=== PATIENT | male | born 1955 | race Hispanic/Latino ===

== ENCOUNTER 2017-01-17 13:35 | Observation (INO) | payer BC ==
[2017-01-17 13:36] VITALS: BMI 33.9
[2017-01-17 14:45] LABS: BASO # 0.1 K/uL (0.0-0.2); BASO % 0.5 % (0.0-2.0); EOS # 0.3 K/uL (0.0-0.7); EOS % 1.7 % (0.0-4.0); HEMATOCRIT 42.7 % (35.0-51.0); LYMPH # 0.6 K/uL (1.0-4.3); LYMPH % 4.1 % (20.0-40.0); MEAN CELL VOLUME 88.7 fL (80.0-94.0); MEAN CORPUSCULAR HGB CONC 33.8 g/dL (33.0-37.0); MEAN PLATELET VOLUME 8.6 fL (7.2-11.7); MONO # 0.9 K/uL (0.0-0.8); MONO % 5.7 % (0.0-10.0); PLATELET COUNT 203 K/uL (130-400); RED CELL DISTRIBUTION WIDTH 14.6 % (11.5-14.5)
[2017-01-17] MEDS ORDERED: Barium Sulfate Susp 0.1% w/v, 0.1% w/w 450 mL Bottle PO ONE ×3 (14:46→16:30)
[2017-01-17 14:47] LABS: WHITE BLOOD COUNT 15.3 K/uL (4.8-10.8)
[2017-01-17 14:54] LABS: INR 1.2
[2017-01-17 14:58] LABS: CHLORIDE 99 mmol/L (98-107); SODIUM 140 mmol/L (132-148)
[2017-01-17 14:59] LABS: POTASSIUM 4.2 mmol/L (3.6-5.2)
--- NOTE | 2017-01-17 14:59 | RAD ---
HISTORY: chest pain COMPARISON: None available. TECHNIQUE: Chest, one view. FINDINGS: Examination limited by habitus. LUNGS: Mild pulmonary venous congestion. Subtle right basilar atelectasis or infiltrate. Please note that chest x-ray has limited sensitivity for the detection of pulmonary masses. PLEURA: No significant pleural effusion identified. No definite pneumothorax . CARDIOVASCULAR: Heart size appears top normal. OSSEOUS STRUCTURES: Acromioclavicular arthropathy. VISUALIZED UPPER ABDOMEN: Unremarkable. OTHER FINDINGS: None. IMPRESSION: Mild pulmonary venous congestion. Subtle right basilar atelectasis or infiltrate.
[2017-01-17 15:01] LABS: ALB/GLOB RATIO 1.5 (1.0-2.1); ALKALINE PHOSPHATASE 58 U/L (38-126); ALT/SGPT 29 U/L (21-72); AST/SGOT 21 U/L (17-59); BILIRUBIN,TOTAL 0.3 mg/dL (0.2-1.3); BLOOD UREA NITROGEN 22 mg/dL (9-20); CALCIUM 8.9 mg/dl (8.6-10.4); CARBON DIOXIDE 28 mmol/L (22-30); GFR AFRICAN-AMERICAN > 60; GLUCOSE,RANDOM 118 mg/dL (75-110)
[2017-01-17 15:03] LABS: NEUTROPHIL 91 % (50-75); TOTAL CELLS COUNTED 100
[2017-01-17] MEDS ORDERED: Morphine 4 MG/ML VIAL ONE ×2 (15:59→18:54)
[2017-01-17] MEDS ORDERED: Sodium Chloride 0.9% 500 ML IV ONE ×2 (16:10→16:23)
[2017-01-17] MEDS ORDERED: Iodixanol 320 MG/ML 100 ML BOTTLE IV ONE (16:13)
--- NOTE | 2017-01-17 16:54 | C.PDOC ---
History Of Present Illness 61 year old male with a history of Lupus, DVT, and antiphospholipid syndrome, presents to the ED with complaints of epigastric pain radiating to his chest and down to his lower abdomen since this morning. Patient states his abdomen feels distended and he also has some associated SOB. He states he is compliant with his Xarelt, and denies chest pain, vomiting, diarrhea, fever, dysuria/ hematuria. Time Seen by Provider: 01/17/17 14:19 Chief Complaint (Nursing): Abdominal Pain History Per: Patient History/Exam Limitations: no limitations Onset/Duration Of Symptoms: Hrs Current Symptoms Are (Timing): Still Present Severity: Moderate Location Of Pain/Discomfort: Epigastric Radiation Of Pain To:: Chest Quality Of Discomfort: "Pain" Associated Symptoms: denies: Fever, Vomiting, Diarrhea Exacerbating Factors: None Alleviating Factors: None Past Medical History Reviewed: Historical Data, Nursing Documentation, Vital Signs Vital Signs: Last Vital Signs Temp 98.5 F 01/19/17 08:00 Pulse 78 01/19/17 08:00 Resp 20 01/19/17 08:00 BP 131/76 01/19/17 08:00 Pulse Ox 97 01/19/17 08:00 - Medical History PMH: Fractures, HTN - [facility] Procedures ANGIOPLASTY OF OTHER NON-CORONARY VESSEL(S) (01/06/15) CONTRAST AORTOGRAM (01/06/15) CONTRAST ARTERIOGRAM-LEG (01/06/15) ENDOSC POLYPECTOMY OF LG INTEST (03/04/15) INSEJ [id number] PERIPHERAL NON-CORONARY VES STENT(S) (01/06/15) INSERTION OF TWO VASCULAR STENTS (01/06/15) PROCEDURE ON TWO VESSELS (01/06/15) Family History: States: No Known Family Hx - Social History Hx Tobacco Use: Yes Hx Alcohol Use: Yes Hx Substance Use: No - Immunization History Hx Tetanus Toxoid Vaccination: No Hx Influenza Vaccination: Yes Hx Pneumococcal Vaccination: No Review Of Systems Except As Marked, All Systems Reviewed And Found Negative. Constitutional: Negative for: Fever, Chills Cardiovascular: Negative for: Chest Pain, Palpitations Respiratory: Positive for: Shortness of Breath Gastrointestinal: Positive for: Abdominal Pain, Other (+Distention). Negative for: Nausea, Vomiting, Diarrhea Genitourinary: Negative for: Dysuria, Hematuria Physical Exam - Physical Exam Appears: Non-toxic, Other (+Uncomfotable + Moderate discomfort) Skin: Normal Color, Warm, Dry, No Rash Head: Normacephalic Eye(s): bilateral: Normal Inspection Oral Mucosa: Moist Chest: Symmetrical Cardiovascular: Rhythm Regular Respiratory: Normal Breath Sounds, No Accessory Muscle Use, No Rales, No Rhonchi , No Wheezing, Other (Speaking in complete sentences) Gastrointestinal/Abdominal: Soft, Tenderness (+diffuse TTP greatest at epigastric area ), No Distention, No Guarding, No Rebound Back: Normal Inspection, No CVA Tenderness Extremity: Normal ROM, No Pedal Edema, No Calf Tenderness Neurological/Psych: Oriented x3 ED Course And Treatment - Laboratory Results Result Diagrams: 01/19/17 07:45 01/19/17 07:45 ECG: Interpreted By Me, Viewed By Me ECG Rhythm: Sinus Rhythm ECG Interpretation: No Acute Changes Interpretation Of ECG: +Left axis deviation. No acute ST/T wave changes. Rate From EC (bpm) O2 Sat by Pulse Oximetry: 96 (Room air) Pulse Ox Interpretation: Normal - Radiology CXR: Interpreted by Me, Viewed By Me (NO INFILTRATES, (+) MILD PULM VASCULAR CONGESTION) - CT Scan/US CTA Chest Other Rad Studies (CT/US): Read By Radiologist, Radiology Report Reviewed CT/US Interpretation: FINDINGS: PULMONARY ARTERIES: No large, central pulmonary emboli. Assessment beyond the lobar branches is limited by patient related motion induced artifact and suboptimal bolus injection of contrast. AORTA: No acute findings. No thoracic aortic aneurysm. LUNGS: Unremarkable. No nodule, mass or pulmonary consolidation. PLEURAL SPACES: Unremarkable. No effusion or pneuomothorax. HEART: Cardiomegaly. No evidence of acute, significant cardiovascular disease. LYMPH NODES: No lymphadenopathy. BONES, CHEST WALL: Unremarkable. No fracture or destructive lesion. OTHER FINDINGS: Unremarkable. IMPRESSION: No large, central pulmonary emboli. Nondiagnostic study beyond the lobar level. This relates to poor contrast opacification and patient related motion induced artifact. If there is a high index of suspicion for acute pulmonary embolism either repeat study or ventilation-perfusion scan advised. CTA ABD & Pelvis w/contrast Other Rad Studies (CT/US): Read By Radiologist, Radiology Report Reviewed CT/US Interpretation: FINDINGS: LOWER THORAX: Unremarkable. LIVER: Unremarkable. No gross lesion or ductal dilatation. GALLBLADDER AND BILE DUCTS : Unremarkable. PANCREAS: Unremarkable. No gross lesion or ductal dilatation. SPLEEN: Unremarkable. ADRENALS: Unremarkable. No mass. KIDNEYS AND URETERS: Unremarkable. No hydronephrosis. No solid mass. VASCULATURE: Bilateral aorta iliac stents are seen. There is enhancement within the lumen of the stents. The SMA and celiac arteries are patent. BOWEL: Unremarkable. No obstruction. No gross mural thickening. No evidence of pneumatosis to suggest mesenteric ischemia. APPENDIX: Normal appendix. PERITONEUM: Unremarkable. No free fluid. No free air. LYMPH NODES: Unremarkable. No enlarged lymph nodes. BLADDER: Unremarkable. REPRODUCTIVE: Unremarkable. BONES: No acute fracture. OTHER FINDINGS: None. IMPRESSION: No evidence of mesenteric occlusion Progress Note: Blood work, EKG, CXR, CTA Abdomen & Pelvis w/contrast, CTA Chest ordered and reviewed. Patient's h/o blood clots/antiphospholipid syndrome concerning for PE/mesenteric ischemia. Patient treated given IV NS bolus, IV morphine. Reevaluation Time: 18:15 Reassessment Condition: Unchanged (Patient states he is still having significant pain, IV morphine and IV Cipro & Flagyl ordered.) - Physician Consult Information Physician Contacted: Nikolay Joseph Outcome Of Conversation: Spoke with Dr. Nikolay Joseph, he agrees with admission to hospitalist service, will be under Dr. Khalil since he is the night hospitalist. Disposition - Disposition Disposition: HOSPITALIZED Disposition Time: 18:36 Condition: STABLE - Clinical Impression Clinical Impression: Acute diverticulitis, Abdominal pain - Scribe Statement The provider has reviewed the documentation as recorded by the Scribe Tracy Domingo. Provider Attestation: All medical record entries made by the Argentinaibneno were at my direction and personally dictated by me. I have reviewed the chart and agree that the record accurately reflects my personal performance of the history, physical exam, medical decision making, and the department course for this patient. I have also personally directed, reviewed, and agree with the discharge instructions and disposition. Decision To Admit - Pt Status Changed To: Hospital Disposition Of: Inpatient - Admit Certification Admit to Inpatient:: After my assessment, the patient will require hospitalization for at least two midnights. This is because of the severity of symptoms shown, intensity of services needed, and/or the medical risk in this patient being treated as an outpatient. - InPatient: Physician Admission Certification:: see notes - . Bed Request Type: Regular Admitting Physician: Alan Khalil Patient Diagnosis: Acute diverticulitis
[2017-01-17] MEDS ORDERED: Iodixanol 320 mg/ml 150 ml Bottle IV ONE (16:57)
--- NOTE | 2017-01-17 17:34 | CT ---
PROCEDURE: CT Chest with contrast (Pulmonary Angiogram) HISTORY: CP, SOB H/O DVT R/O PE COMPARISON: None available. TECHNIQUE: Axial computed tomography images were obtained of the chest in the pulmonary arterial phase of enhancement. Coronal and sagittal reformatted images were created and reviewed. Intravenous contrast dose: 75 cc Visipaque 320. Mean Hounsfield unit values in the main pulmonary artery: 188.24 Radiation dose: Total exam DLP = 512.18. MGy-cm. This CT exam was performed using one or more of the following dose reduction techniques: Automated exposure control, adjustment of the mA and/or kV according to patient size, and/or use of iterative reconstruction technique. FINDINGS: PULMONARY ARTERIES: No large, central pulmonary emboli. Assessment beyond the lobar branches is limited by patient related motion induced artifact and suboptimal bolus injection of contrast. AORTA: No acute findings. No thoracic aortic aneurysm. LUNGS: Unremarkable. No nodule, mass or pulmonary consolidation. PLEURAL SPACES: Unremarkable. No effusion or pneuomothorax. HEART: Cardiomegaly. No evidence of acute, significant cardiovascular disease. LYMPH NODES: No lymphadenopathy. BONES, CHEST WALL: Unremarkable. No fracture or destructive lesion OTHER FINDINGS: Unremarkable. IMPRESSION: No large, central pulmonary emboli. Nondiagnostic study beyond the lobar level. This relates to poor contrast opacification and patient related motion induced artifact. If there is a high index of suspicion for acute pulmonary embolism either repeat study or ventilation-perfusion scan advised.
--- NOTE | 2017-01-17 17:43 | CT ---
PROCEDURE: CT Abdomen and Pelvis with contrast HISTORY: H/O DVT, ABD PAIN, SOB, R/O MESENERIC ISCHEMIA COMPARISON: None. TECHNIQUE: Contrast dose: 100 cc of Visipaque Radiation dose: Total exam DLP = 996 mGy-cm. This CT exam was performed using one or more of the following dose reduction techniques: Automated exposure control, adjustment of the mA and/or kV according to patient size, and/or use of iterative reconstruction technique. FINDINGS: LOWER THORAX: Unremarkable. LIVER: Unremarkable. No gross lesion or ductal dilatation. GALLBLADDER AND BILE DUCTS: Unremarkable. PANCREAS: Unremarkable. No gross lesion or ductal dilatation. SPLEEN: Unremarkable. ADRENALS: Unremarkable. No mass. KIDNEYS AND URETERS: Unremarkable. No hydronephrosis. No solid mass. VASCULATURE: Bilateral aorta iliac stents are seen. There is enhancement within the lumen of the stents. The SMA and celiac arteries are patent. BOWEL: Unremarkable. No obstruction. No gross mural thickening. No evidence of pneumatosis to suggest mesenteric ischemia. APPENDIX: Normal appendix. PERITONEUM: Unremarkable. No free fluid. No free air. LYMPH NODES: Unremarkable. No enlarged lymph nodes. BLADDER: Unremarkable. REPRODUCTIVE: Unremarkable. BONES: No acute fracture. OTHER FINDINGS: None. IMPRESSION: No evidence of mesenteric occlusion
[2017-01-17] MEDS ORDERED: Ciprofloxacin 400mg/200ml D5W 200 ML IV STA (18:20)
[2017-01-17] MEDS ORDERED: metroNIDAZOLE IV 500 mg/100 ml 100 ML IV SCH (18:30)
[2017-01-17] MEDS ORDERED: metroNIDAZOLE IV 500 mg/100 ml 100 ML IV STA (18:45)
[2017-01-17] MEDS ORDERED: metroNIDAZOLE IV 500 mg/100 ml 100 ML ONE (18:53)
[2017-01-17] MEDS ORDERED: Ciprofloxacin 400mg/200ml D5W 200 ML IVPB ONE (19:29)
--- NOTE | 2017-01-17 20:16 | CP.PCM.HP ---
<Lars HILLIARDIvy - Last Filed: 01/17/17 21:55> History of Present Illness - History of Present Illness History of Present Illness: Patient is a 61 year old male with past medical history of left leg DVT, PVD, and CVA who presents with complaint of epigastric abdominal pain. Patient states that the pain started after he ate his lunch around 11:15AM. Patient states that he started to get shooting pain in his chest up to his neck and down into his stomach. He said he went outside to get some fresh air at the time the pain started but that he felt very uncomfortable and felt that his stomach was becoming distended. Patient states he had similar pain 12 years ago and had gone to an ER because he thought the pain was cardiac-related. Patient states at that time he ended up just having severe gas pains. Patient states that he was feeling constipated on Saturday evening but had "smooth move" tea that contains senna to help have a bowel movement. Patient states that he did have a bowel movement the next morning but it had a white foam on it. Patient states that he always checks his urine for blood as well as his stool for blood or melena because he is on xarelto for his DVT. Patient denies fever or chills, chest pain or diaphoresis. Patient states the pain is a burning sensation and when it gets stronger it makes him short of breath. Patient complains of abdominal distention that has slightly improved. He also states he is passing gas. Patient denies nausea and vomiting, diarrhea, dysuria, leg or back pain. Patient states he is drinking a lot of water and is also urinating many times per day. Patient states he walks several miles per day and does not get short of breath, he also denies orthopnea. 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, PVD, states he has tested positive for lupus antibodies in the past but had rheumatology work up that was negative Meds:xarelto 15mg daily (pt unsure of dose), altace 10mg BID (takes only once daily), [id number] BID (takes only once), ASA 81mg, lipitor 20mg, plavix 75mg PSHx: arterial stents in legs, colonoscopy that showed diverticulum FamHx: father with diabetes, CVA, heart disease, alcoholism Social Hx: 1pppd smoker for 50 years; drinks one shot sambuca at night with espresso; lives with in [place]; 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 absent: Chest Pain, Diaphoresis - Respiratory Respiratory: Dyspnea. absent: Cough - Gastrointestinal Gastrointestinal: Abdominal Pain, Bloating, Constipation. absent: Diarrhea, Nausea, Vomiting - Genitourinary Genitourinary: absent: Difficulty Urinating, Dysuria - Musculoskeletal Musculoskeletal: absent: Back Pain - Integumentary Integumentary: absent: New Lesions, Rash - Neurological Neurological: absent: Dizziness, Focal Weakness - Psychiatric Psychiatric: Anxiety Past Patient History - Infectious Disease Hx of Infectious Diseases: None - Past Medical History & Family History Past Medical History?: Yes - Past Social History Smoking Status: Heavy Smoker > 10 Cigarettes Daily - CARDIAC Hx Hypertension: Yes - PULMONARY Hx Respiratory Disorders: No - NEUROLOGICAL Hx Neurological Disorder: Yes HX Cerebrovascular Accident: Yes (2006) - HEENT Hx HEENT Problems: No - RENAL Hx Chronic Kidney Disease: No - ENDOCRINE/METABOLIC Hx Endocrine Disorders: No Other/Comment: strong family h/o diabetes - HEMATOLOGICAL/ONCOLOGICAL Hx Blood Disorders: No Hx Blood Transfusions: No Hx Blood Transfusion Reaction: No - INTEGUMENTARY Hx Dermatological Problems: No - MUSCULOSKELETAL/RHEUMATOLOGICAL Hx Fractures: Yes - GASTROINTESTINAL Hx Gastrointestinal Disorders: No - GENITOURINARY/GYNECOLOGICAL Hx Genitourinary Disorders: No - PSYCHIATRIC Hx Substance Use: No - SURGICAL HISTORY Hx Surgeries: Yes Hx Orthopedic Surgery: Yes (left knee) Hx Vascular Surgery: Yes - ANESTHESIA Hx Anesthesia: Yes Hx Anesthesia Reactions: No Hx Malignant Hyperthermia: No Meds Allergies/Adverse Reactions: Allergies Allergy/AdvReac Type Severity Reaction Status Date / Time No Known Allergies Allergy Verified 01/17/17 13:59 Physical Exam - Constitutional Appears: Non-toxic, Other (uncomfortable) - Head Exam Head Exam: ATRAUMATIC, NORMOCEPHALIC - Eye Exam Eye Exam: EOMI, Normal appearance - ENT Exam ENT Exam: Mucous Membranes Dry - Respiratory Exam Respiratory Exam: Wheezes, NORMAL BREATHING PATTERN - Cardiovascular Exam Cardiovascular Exam: +S1, +S2 - GI/Abdominal Exam GI & Abdominal Exam: Distended, Normal Bowel Sounds, Tenderness (left upper and left lower quadrant tenderness). absent: Firm, Guarding, Rebound Additional comments: small umbilical hernia - Extremities Exam Extremities exam: Negative for: calf tenderness Additional comments: left lower extremity with 1+ pitting edema bilateral calves nontender to palpation negative Shen's sign - Neurological Exam Neurological exam: Alert, Oriented x3 - Psychiatric Exam Psychiatric exam: Anxious - Skin Skin Exam: Dry, Normal Color, Warm Results - Vital Signs Recent Vital Signs: Last Vital Signs Temp 100.0 F H 01/17/17 18:36 Pulse 86 01/17/17 18:36 Resp 24 01/17/17 18:36 BP 113/74 01/17/17 18:36 Pulse Ox 96 01/17/17 18:38 - Labs Result Diagrams: 01/17/17 14:41 01/17/17 14:41 Assessment & Plan - Assessment and Plan (Free Text) Assessment: Abdominal Pain CT angio of abdomen and pelvis done to rule out mesenteric ischemia due to history of DVT CT shows no mesenteric occlusion, there are bilateral aorta iliac stents, SMA/ celiacs patent mild acute focal diverticulitis in sigmoid; no abscess or perforation. Fluid filled nonspecific small bowel loops without a clear transition measuring up to 2.9cm. this may be within physiologic limits however presence of gastroenteritis or partial obstruction not completely excluded (please see full report) Will keep patient NPO for now zofran 4mg Q6hprn pepcid 20mg IV q12h NS @ 100cc/h flagyl q8h, cipro 200mg q12h Dyspnea CT angio chest ordered to rule out pulmonary embolus given history of DVT CT negative for large central pulmonary embolus History of DVT will continue xarelto- home dose needs to be verified by pharmacy HTN patient takes ramipril at home patient currently normotensive will add medications as necessary Diabetes holding metformin due to recent IV contrast ISS with accuchecks ACHS PVD continue plavix and aspirin Hyperlipidemia continue lipitor 20mg equivalent Prophylactic measure SCDs contraindicated due to PVD patient is on xarelto for anticoagulation pepcid 20mg q12h Patient seen and examined with attending physician. Plan of care as per attending physician Dr. Khalil. <Alan Khalil P - Last Filed: 01/20/17 20:29> Results - Vital Signs Recent Vital Signs: Last Vital Signs Temp 98.5 F 01/19/17 08:00 Pulse 78 01/19/17 08:00 Resp 20 01/19/17 08:00 BP 131/76 01/19/17 08:00 Pulse Ox 97 01/19/17 08:00 - Labs Result Diagrams: 01/19/17 07:45 01/19/17 07:45 Attending/Attestation - Attestation I have personally seen and examined this patient.: Yes I have fully participated in the care of the patient.: Yes I have reviewed all pertinent clinical information: Yes
[2017-01-17 21:50] VITALS: RESP 20
[2017-01-17] MEDS: (Novolin R) Insulin Human Regular 100 units/ml vial SC SCH (23:01)
[2017-01-17] MEDS: Sodium Chloride 0.9% 1,000 ML IV SCH (23:01)
[2017-01-18] MEDS: metroNIDAZOLE IV 500 mg/100 ml 250 MG in Premixed IV 1 EA IVPB SCH ×3 (03:05→18:07)
[2017-01-18 07:30] LABS: BASO # 0.1 K/uL (0.0-0.2); BASO % 0.8 % (0.0-2.0); EOS # 0.2 K/uL (0.0-0.7); EOS % 2.3 % (0.0-4.0); LYMPH # 0.6 K/uL (1.0-4.3); LYMPH % 5.8 % (20.0-40.0); MEAN CELL VOLUME 88.1 fL (80.0-94.0); MEAN CORPUSCULAR HEMOGLOBIN 29.4 pg (27.0-31.0); MEAN CORPUSCULAR HGB CONC 33.3 g/dL (33.0-37.0); MEAN PLATELET VOLUME 9.2 fL (7.2-11.7); MONO # 0.7 K/uL (0.0-0.8); MONO % 6.6 % (0.0-10.0); PLATELET COUNT 172 K/uL (130-400); RED CELL DISTRIBUTION WIDTH 14.4 % (11.5-14.5)
[2017-01-18 07:39] LABS: CHLORIDE 98 mmol/L (98-107)
[2017-01-18 07:41] LABS: ALB/GLOB RATIO 1.3 (1.0-2.1); BILIRUBIN,TOTAL 0.9 mg/dL (0.2-1.3); CARBON DIOXIDE 26 mmol/L (22-30); GFR AFRICAN-AMERICAN > 60
[2017-01-18 07:42] LABS: BLOOD UREA NITROGEN 19 mg/dL (9-20); GLUCOSE,RANDOM 124 mg/dL (75-110)
[2017-01-18 08:24] LABS: SODIUM 133 mmol/L (132-148)
[2017-01-18 08:26] LABS: ALKALINE PHOSPHATASE 53 U/L (38-126); AST/SGOT 18 U/L (17-59); TOTAL PROTEIN 6.1 g/dL (6.3-8.3)
[2017-01-18] MEDS: (Novolin R) Insulin Human Regular 100 units/ml vial SC SCH ×3 (08:26→21:46)
[2017-01-18 08:27] LABS: ALT/SGPT 29 U/L (21-72)
[2017-01-18] MEDS: Sodium Chloride 0.9% 1,000 ML IV SCH (08:54)
[2017-01-18 09:55] LABS: EOSINOPHIL 1 % (0-4); NEUTROPHIL 79 % (50-75); REACTIVE LYMPHOCYTES 1 % (0-0); TOTAL CELLS COUNTED 100
[2017-01-18] MEDS: Ciprofloxacin 200mg/100ml D5W 100 ML IVPB SCH ×2 (10:13→21:45)
--- NOTE | 2017-01-18 12:04 | CARD ---
APPROVED REPORT EKG Measurement Heart [id number] <Conclusion> Normal sinus rhythm Left axis deviation Abnormal ECG
--- NOTE | 2017-01-18 17:10 | CP.PCM.PN ---
<Clifford Harrison - Last Filed: 01/18/17 17:18> Subjective - Date & Time of Evaluation Date of Evaluation: 01/18/17 Time of Evaluation: 10:00 - Subjective Subjective: PGY-1 Medicine Progress Note for Dr. Sanchez Patient seen and examined at bedside. No acute event overnight. Patient resting in bed comfortbly. Patient abdominal pain has improved. Patient had BM this morning and it was solid with normal color and caliber. Patient does not want insulin stating he is not Diabetic. Patient has no other complaint. denied fever /chills, cp, sob, palpitations, hematochezia, hemetemesis, n/v/d, incontinence, and constipation. Objective - Vital Signs/Intake and Output Vital Signs (last 24 hours): Temp Pulse Resp BP Pulse Ox 98.2 F 74 20 108/71 96 01/18/17 16:00 01/18/17 16:00 01/18/17 16:00 01/18/17 16:00 01/18/17 16:00 Intake and Output: 01/18/17 01/18/17 06:59 18:59 Intake Total 800 Balance 800 - Medications Medications: Current Medications Aspirin (Ecotrin) 81 mg PO DAILY [facility] Last Admin: 01/18/17 10:14 Dose: 81 mg Clopidogrel Bisulfate (Plavix) 75 mg PO DAILY [facility] Last Admin: 01/18/17 10:14 Dose: 75 mg Cyanocobalamin (Vitamin B12 100 Mcg Tab) 100 mcg PO DAILY [facility] Last Admin: 01/18/17 11:00 Dose: Not Given Docusate Sodium (Colace) 100 mg PO TID [facility] Last Admin: 01/18/17 14:57 Dose: 100 mg Famotidine (Pepcid) 20 mg IVP Q12H [facility] Last Admin: 01/18/17 14:57 Dose: 20 mg Folic Acid (Folic Acid) 1 mg PO DAILY [facility] Last Admin: 01/18/17 10:14 Dose: 1 mg Sodium Chloride (Sodium Chloride 0.9%) 1,000 mls @ 100 mls/hr IV .Q10H [facility] Last Admin: 01/18/17 08:54 Dose: Not Given Metronidazole 250 mg/ (Miscellaneous) 50 mls @ 100 mls/hr IVPB Q8H [facility] Last Admin: 01/18/17 12:00 Dose: 100 mls/hr Ciprofloxacin (Cipro 200mg/100ml D5w) 100 mls @ 67 mls/hr IVPB Q12H [facility] Last Admin: 01/18/17 10:13 Dose: 67 mls/hr Morphine Sulfate (Morphine) 2 mg IVP Q4 PRN PRN Reason: Pain, moderate (4-7) Last Admin: 01/18/17 16:20 Dose: 2 mg Ondansetron HCl (Zofran Inj) 4 mg IVP Q6H PRN PRN Reason: Nausea/Vomiting Rivaroxaban (Xarelto) 20 mg PO DAILY [facility] Last Admin: 01/18/17 10:14 Dose: 20 mg Rosuvastatin Calcium (Crestor) 10 mg PO HS [facility] - Labs Labs: 01/18/17 07:13 01/18/17 07:13 PT 13.9 SECONDS (9.7-12.2) H 01/17/17 14:41 INR 1.2 01/17/17 14:41 APTT 77 SECONDS (21-34) H 01/17/17 14:41 - Constitutional Appears: No Acute Distress - Head Exam Head Exam: ATRAUMATIC, NORMOCEPHALIC - Eye Exam Eye Exam: EOMI, Normal appearance Pupil Exam: PERRL - ENT Exam ENT Exam: Mucous Membranes Moist - Neck Exam Neck Exam: Normal Inspection - Respiratory Exam Respiratory Exam: Clear to Ausculation Bilateral, NORMAL BREATHING PATTERN - GI/Abdominal Exam GI & Abdominal Exam: Soft, Tenderness (mild to deep palpation), Normal Bowel Sounds. absent: Distended, Firm, Guarding, Rebound - Extremities Exam Extremities Exam: Normal Capillary Refill. absent: Calf Tenderness - Back Exam Back Exam: absent: CVA tenderness (L), CVA tenderness (R) - Neurological Exam Neurological Exam: Alert, Awake, CN II-XII Intact, Normal Gait, Oriented x3 - Psychiatric Exam Psychiatric exam: Normal Affect, Normal Mood - Skin Skin Exam: Dry, Intact, Normal Color, Warm Assessment and Plan - Assessment and Plan (Free Text) Plan: Abdominal Pain likely secondary to diverticulitis CT angio of abdomen and pelvis done to rule out mesenteric ischemia due to history of DVT CT shows no mesenteric occlusion, there are bilateral aorta iliac stents, SMA/ celiacs patent mild acute focal diverticulitis in sigmoid; no abscess or perforation. Fluid filled nonspecific small bowel loops without a clear transition measuring up to 2.9cm. this may be within physiologic limits however presence of gastroenteritis or partial obstruction not completely excluded (please see full report) zofran 4mg Q6h prn Protonix 40 mg IVP q12h NS @ 100cc/h flagyl q8h, cipro 200mg q12h CLD - ADAT Dyspnea CT angio chest ordered to rule out pulmonary embolus given history of DVT CT negative for large central pulmonary embolus History of DVT Xarelto 20 mg PO daily HTN patient takes ramipril at home patient currently normotensive will add medications as necessary Diabetes holding metformin due to recent IV contrast ISS with accuchecks ACHS - patient is refusing PVD continue plavix and aspirin Hyperlipidemia Crestor 10 mg PO HS Prophylactic measure SCDs contraindicated due to PVD patient is on xarelto for anticoagulation Protonix 40 mg IVP q12h <Manuelito Sanchez - Last Filed: 01/19/17 12:48> Objective - Vital Signs/Intake and Output Vital Signs (last 24 hours): Temp Pulse Resp BP Pulse Ox 98.5 F 78 20 131/76 97 01/19/17 08:00 01/19/17 08:00 01/19/17 08:00 01/19/17 08:00 01/19/17 08:00 Intake and Output: 01/19/17 01/19/17 06:59 18:59 Intake Total 1800 Output Total 300 Balance 1500 - Labs Labs: 01/19/17 07:45 01/19/17 07:45 PT 13.9 SECONDS (9.7-12.2) H 01/17/17 14:41 INR 1.2 01/17/17 14:41 APTT 77 SECONDS (21-34) H 01/17/17 14:41 Attending/Attestation - Attestation I have personally seen and examined this patient.: Yes I have fully participated in the care of the patient.: Yes I have reviewed all pertinent clinical information, including history, physical exam and plan: Yes Notes (Text): 01/19/17 12:47 patient was seen and examined at bedside with the resident Abdominal pain is improving We will continue IV antibiotics for acute diverticulitis Discussed the plan of care with the resident and agree with the above history and physical and assessment/plan with the resident
[2017-01-19 01:48] VITALS: PULSE 78
[2017-01-19] MEDS: metroNIDAZOLE IV 500 mg/100 ml 250 MG in Premixed IV 1 EA IVPB SCH ×2 (02:45→11:00)
[2017-01-19] MEDS: Sodium Chloride 0.9% 1,000 ML IV SCH (04:40)
[2017-01-19 08:00] LABS: BASO # 0.1 K/uL (0.0-0.2); EOS # 0.4 K/uL (0.0-0.7); EOS % 6.1 % (0.0-4.0); HEMATOCRIT 37.7 % (35.0-51.0); LYMPH # 0.6 K/uL (1.0-4.3); LYMPH % 9.2 % (20.0-40.0); MEAN CELL VOLUME 88.6 fL (80.0-94.0); MEAN CORPUSCULAR HEMOGLOBIN 29.3 pg (27.0-31.0); MEAN CORPUSCULAR HGB CONC 33.1 g/dL (33.0-37.0); MEAN PLATELET VOLUME 9.3 fL (7.2-11.7); MONO # 0.5 K/uL (0.0-0.8); PLATELET COUNT 191 K/uL (130-400); RED CELL DISTRIBUTION WIDTH 14.5 % (11.5-14.5); WHITE BLOOD COUNT 6.7 K/uL (4.8-10.8)
[2017-01-19] MEDS: (Novolin R) Insulin Human Regular 100 units/ml vial SC SCH ×2 (08:00→12:01)
[2017-01-19 08:17] LABS: CHLORIDE 104 mmol/L (98-107)
[2017-01-19 08:18] LABS: POTASSIUM 4.1 mmol/L (3.6-5.2); SODIUM 139 mmol/L (132-148)
[2017-01-19 08:19] LABS: GFR AFRICAN-AMERICAN > 60
[2017-01-19 08:20] LABS: ALB/GLOB RATIO 1.3 (1.0-2.1); ALKALINE PHOSPHATASE 50 U/L (38-126); ALT/SGPT 28 U/L (21-72); AST/SGOT 18 U/L (17-59); BILIRUBIN,TOTAL 0.5 mg/dL (0.2-1.3); BLOOD UREA NITROGEN 14 mg/dL (9-20); CARBON DIOXIDE 26 mmol/L (22-30); GLUCOSE,RANDOM 113 mg/dL (75-110)
[2017-01-19 08:27] VITALS: BP 131/76; TEMP 98.5
[2017-01-19] MEDS: Ciprofloxacin 200mg/100ml D5W 100 ML IVPB SCH (08:31)
[2017-01-19 09:32] LABS: EOSINOPHIL 7 % (0-4); NEUTROPHIL 79 % (50-75); TOTAL CELLS COUNTED 100
--- NOTE | 2017-01-19 11:22 | CP.PCM.DIS ---
<Tarun Soto H - Last Filed: 01/19/17 14:28> Provider - Provider Date of Admission: 01/17/17 18:36 Attending physician: Obie Raya MD Primary care physician: Dr. Bocanegra Consults: Dr. Del Rosario cardiology Time Spent in preparation of Discharge (in minutes): 40 Hospital Course - Lab Results Lab Results: Most Recent Lab Values WBC 6.7 K/uL (4.8-10.8) 01/19/17 07:45 RBC 4.26 Mil/uL (4.40-5.90) L 01/19/17 07:45 Hgb 12.5 g/dL (12.0-18.0) 01/19/17 07:45 Hct 37.7 % (35.0-51.0) 01/19/17 07:45 MCV 88.6 fL (80.0-94.0) 01/19/17 07:45 MCH 29.3 pg (27.0-31.0) 01/19/17 07:45 MCHC 33.1 g/dL (33.0-37.0) 01/19/17 07:45 RDW 14.5 % (11.5-14.5) 01/19/17 07:45 Plt Count 191 K/uL (130-400) 01/19/17 07:45 MPV 9.3 fL (7.2-11.7) 01/19/17 07:45 Neut % (Auto) 75.7 % (50.0-75.0) H 01/19/17 07:45 Lymph % (Auto) 9.2 % (20.0-40.0) L 01/19/17 07:45 [place] % (Auto) 8.0 % (0.0-10.0) 01/19/17 07:45 Eos % (Auto) 6.1 % (0.0-4.0) H 01/19/17 07:45 Baso % (Auto) 1.0 % (0.0-2.0) 01/19/17 07:45 Neut # 5.0 K/uL (1.8-7.0) 01/19/17 07:45 Lymph # 0.6 K/uL (1.0-4.3) L 01/19/17 07:45 [place] # 0.5 K/uL (0.0-0.8) 01/19/17 07:45 Eos # 0.4 K/uL (0.0-0.7) 01/19/17 07:45 Baso # 0.1 K/uL (0.0-0.2) 01/19/17 07:45 Neutrophils % (Manual) 79 % (50-75) H 01/19/17 07:45 Band Neutrophils % 1 % (0-2) 01/19/17 07:45 Lymphocytes % (Manual) 7 % (20-40) L 01/19/17 07:45 Reactive Lymphs % 1 % (0-0) H 01/18/17 07:13 Monocytes % (Manual) 6 % (0-10) 01/19/17 07:45 Eosinophils % (Manual) 7 % (0-4) H 01/19/17 07:45 Platelet Estimate Normal (NORMAL) 01/19/17 07:45 RBC Morphology Normal 01/18/17 07:13 PT 13.9 SECONDS (9.7-12.2) H 01/17/17 14:41 INR 1.2 01/17/17 14:41 APTT 77 SECONDS (21-34) H 01/17/17 14:41 Sodium 139 mmol/L (132-148) 01/19/17 07:45 Potassium 4.1 mmol/L (3.6-5.2) 01/19/17 07:45 Chloride 104 mmol/L (98-107) 01/19/17 07:45 Carbon Dioxide 26 mmol/L (22-30) 01/19/17 07:45 Anion Gap 13 (10-20) 01/19/17 07:45 BUN 14 mg/dL (9-20) 01/19/17 07:45 Creatinine 1.0 MG/DL (0.8-1.5) 01/19/17 07:45 Est GFR ( Amer) > 60 01/19/17 07:45 Est GFR (Non-Af Amer) > 60 01/19/17 07:45 POC Glucose (mg/dL) 104 mg/dL (65-110) 01/18/17 21:40 Random Glucose 113 mg/dL (75-110) H 01/19/17 07:45 Lactic Acid 0.8 mmol/L (0.7-2.1) 01/19/17 10:56 Calcium 8.0 mg/dl (8.6-10.4) L 01/19/17 07:45 Total Bilirubin 0.5 mg/dL (0.2-1.3) 01/19/17 07:45 AST 18 U/L (17-59) 01/19/17 07:45 ALT 28 U/L (21-72) 01/19/17 07:45 Alkaline Phosphatase 50 U/L (38-126) 01/19/17 07:45 Total Creatine Kinase 55 U/L (55-170) 01/18/17 07:13 CK-MB (Mass) 1.44 ng/mL (0.0-3.38) 01/18/17 07:13 Troponin I < 0.0120 ng/mL (0.00-0.120) 01/17/17 14:41 Troponin I, Quant < 0.0120 ng/mL (0.00-0.120) 01/18/17 07:13 NT-Pro-B Natriuret Pep 96.6 pg/mL (0-900) 01/17/17 16:56 Total Protein 6.0 g/dL (6.3-8.3) L 01/19/17 07:45 Albumin 3.5 g/dL (3.5-5.0) 01/19/17 07:45 Globulin 2.6 gm/dL (2.2-3.9) 01/19/17 07:45 Albumin/Globulin Ratio 1.3 (1.0-2.1) 01/19/17 07:45 Lipase 94 U/L (23-300) 01/17/17 21:26 - Hospital Course Hospital Course: Hospital course: Patient was admitted for chest pain, anxiety, shortness of breath. He was worked with CT of the chest negative for central PE, negative cardiac enzymes x3. He was also given IV antibiotics for suspected diveriticlis and ischemic bowel. CT angio of the abdomen showed no evidence of mesentric ischemia or inflammation. He saw Dr. Del Rosario cardiology for outpatient referral. D/C plan and instruction Patient to be discharged home per Dr. Raya. Patient will need to see his primary care physician and a supervisor tank cleaning after discharge for post hospital care and for primary care as well. Patient will return to ED if symptoms return. Patient can see Dr. Del Rosario for cardiology or he can be referred by his PMD. Diagnosis Chest Pain -PE ruled out, DE ruled out h/o Peripheral vascular disease Anxiety NIDDM Discharge Exam - Head Exam Head Exam: ATRAUMATIC, NORMOCEPHALIC Discharge Plan - Follow Up Plan Condition: STABLE Disposition: HOME/ ROUTINE Instructions: How to Stop Smoking (DC), Diverticulitis (DC), Heart Healthy Diet (DC), Deep Venous Thrombosis (DC), Peripheral Vascular Disease (DC), Chronic Hypertension (DC), Dyspnea (GEN), Hyperlipidemia (DC), Prediabetes (DC) Additional Instructions: Patient to be discharged home per Dr. Raya. Patient will need to see his primary care physician and a supervisor tank cleaning after discharge for post hospital care and for primary care as well. Patient will return to ED if symptoms return. Patient can see Dr. Del Rosario for cardiology or he can be referred by his PMD. Referrals: Aubrey Del Rosario MD [Staff Provider] - Clinical Quality Measures - CQM - Stroke Antithrombotic Prescribed: Yes Anticoagulation Prescribed for Atrial Flutter, Atrial Fibrillation and History of:: Yes - CQM - VTE Did patient receive overlap therapy during hosptialization?: No Is patient being discharged on overlap therapy?: No Medical Reason for discharge Overlap Therapy: No <Obie Raya - Last Filed: 02/20/17 15:14> Provider - Provider Date of Admission: 01/17/17 16:55 Attending physician: Obie Raya MD Hospital Course - Lab Results Lab Results: Most Recent Lab Values WBC 6.7 K/uL (4.8-10.8) 01/19/17 07:45 RBC 4.26 Mil/uL (4.40-5.90) L 01/19/17 07:45 Hgb 12.5 g/dL (12.0-18.0) 01/19/17 07:45 Hct 37.7 % (35.0-51.0) 01/19/17 07:45 MCV 88.6 fL (80.0-94.0) 01/19/17 07:45 MCH 29.3 pg (27.0-31.0) 01/19/17 07:45 MCHC 33.1 g/dL (33.0-37.0) 01/19/17 07:45 RDW 14.5 % (11.5-14.5) 01/19/17 07:45 Plt Count 191 K/uL (130-400) 01/19/17 07:45 MPV 9.3 fL (7.2-11.7) 01/19/17 07:45 Neut % (Auto) 75.7 % (50.0-75.0) H 01/19/17 07:45 Lymph % (Auto) 9.2 % (20.0-40.0) L 01/19/17 07:45 [place] % (Auto) 8.0 % (0.0-10.0) 01/19/17 07:45 Eos % (Auto) 6.1 % (0.0-4.0) H 01/19/17 07:45 Baso % (Auto) 1.0 % (0.0-2.0) 01/19/17 07:45 Neut # 5.0 K/uL (1.8-7.0) 01/19/17 07:45 Lymph # 0.6 K/uL (1.0-4.3) L 01/19/17 07:45 [place] # 0.5 K/uL (0.0-0.8) 01/19/17 07:45 Eos # 0.4 K/uL (0.0-0.7) 01/19/17 07:45 Baso # 0.1 K/uL (0.0-0.2) 01/19/17 07:45 Neutrophils % (Manual) 79 % (50-75) H 01/19/17 07:45 Band Neutrophils % 1 % (0-2) 01/19/17 07:45 Lymphocytes % (Manual) 7 % (20-40) L 01/19/17 07:45 Reactive Lymphs % 1 % (0-0) H 01/18/17 07:13 Monocytes % (Manual) 6 % (0-10) 01/19/17 07:45 Eosinophils % (Manual) 7 % (0-4) H 01/19/17 07:45 Platelet Estimate Normal (NORMAL) 01/19/17 07:45 RBC Morphology Normal 01/18/17 07:13 PT 13.9 SECONDS (9.7-12.2) H 01/17/17 14:41 INR 1.2 01/17/17 14:41 APTT 77 SECONDS (21-34) H 01/17/17 14:41 Sodium 139 mmol/L (132-148) 01/19/17 07:45 Potassium 4.1 mmol/L (3.6-5.2) 01/19/17 07:45 Chloride 104 mmol/L (98-107) 01/19/17 07:45 Carbon Dioxide 26 mmol/L (22-30) 01/19/17 07:45 Anion Gap 13 (10-20) 01/19/17 07:45 BUN 14 mg/dL (9-20) 01/19/17 07:45 Creatinine 1.0 MG/DL (0.8-1.5) 01/19/17 07:45 Est GFR ( Amer) > 60 01/19/17 07:45 Est GFR (Non-Af Amer) > 60 01/19/17 07:45 POC Glucose (mg/dL) 104 mg/dL (65-110) 01/18/17 21:40 Random Glucose 113 mg/dL (75-110) H 01/19/17 07:45 Lactic Acid 0.8 mmol/L (0.7-2.1) 01/19/17 10:56 Calcium 8.0 mg/dl (8.6-10.4) L 01/19/17 07:45 Total Bilirubin 0.5 mg/dL (0.2-1.3) 01/19/17 07:45 AST 18 U/L (17-59) 01/19/17 07:45 ALT 28 U/L (21-72) 01/19/17 07:45 Alkaline Phosphatase 50 U/L (38-126) 01/19/17 07:45 Total Creatine Kinase 55 U/L (55-170) 01/18/17 07:13 CK-MB (Mass) 1.44 ng/mL (0.0-3.38) 01/18/17 07:13 Troponin I < 0.0120 ng/mL (0.00-0.120) 01/17/17 14:41 Troponin I, Quant < 0.0120 ng/mL (0.00-0.120) 01/18/17 07:13 NT-Pro-B Natriuret Pep 96.6 pg/mL (0-900) 01/17/17 16:56 Total Protein 6.0 g/dL (6.3-8.3) L 01/19/17 07:45 Albumin 3.5 g/dL (3.5-5.0) 01/19/17 07:45 Globulin 2.6 gm/dL (2.2-3.9) 01/19/17 07:45 Albumin/Globulin Ratio 1.3 (1.0-2.1) 01/19/17 07:45 Lipase 94 U/L (23-300) 01/17/17 21:26 Attending/Attestation - Attestation I have personally seen and examined this patient.: Yes I have fully participated in the care of the patient.: Yes I have reviewed all pertinent clinical information, including history, physical exam and plan: Yes Notes (Text): Patient seen and examined with the resident. Agree with the resident's evaluation, assessment and plan. Patient was admitted for chest pain, anxiety, shortness of breath. He was worked with CT of the chest negative for central PE, negative cardiac enzymes x3. He was also given IV antibiotics for suspected diveriticlis and ischemic bowel. CT angio of the abdomen showed no evidence of mesentric ischemia or inflammation. He saw Dr. Del Rosario cardiology for outpatient referral.
[2017-01-22 11:59] VITALS: O2SAT 96
== END 2017-01-19 11:45 | disposition home or self-care (01) ==
LOC: C.ER 13:35 → C.9OBSV 16:55 → INTOOBSV 18:36 → OBSVTOIN 18:36 → C.9E 18:36 → C.3T 20:46
PROVIDERS: ADMIT Emergency Medicine; ATTEND Internal Medicine
DX: K57.92 Diverticulitis of intestine, part unspecified, without perforation or abscess without bleeding (principal); D68.61 Antiphospholipid syndrome; E11.51 Type 2 diabetes mellitus with diabetic peripheral angiopathy without gangrene; M32.9 Systemic lupus erythematosus, unspecified; R07.89 Other chest pain; F41.9 Anxiety disorder, unspecified; E78.5 Hyperlipidemia, unspecified; H53.9 Unspecified visual disturbance; I69.398 Other sequelae of cerebral infarction; F17.210 Nicotine dependence, cigarettes, uncomplicated; Z79.84 Long term (current) use of oral hypoglycemic drugs
CPT/HCPCS: 36415; 71010; 71275; 74175; 80053; 82550; 82553; 82948; 83605; 83690; 83880; 84484; 85025; 85610; 85730; 93005; 96365; 96366; 96367; 96375; 96376; 99285; G0378; J0744; J1885; J2270; J7040; Q9965

== ENCOUNTER 2017-01-31 07:50 | Day surgery (SDC) | payer BC ==
[2017-01-31 08:45] VITALS: BMI 33.0
[2017-01-31] MEDS ORDERED: Propofol 10 mg/ml Inj (20 ML) ONE (09:25)
[2017-01-31] MEDS ORDERED: Lidocaine Hydrochloride 5 ML INJ ONE (09:25)
[2017-01-31 10:29] VITALS: TEMP 98.1
[2017-01-31 10:47] VITALS: BP 120/75; PULSE 64; RESP 16; O2SAT 98
== END 2017-01-31 10:40 | disposition home or self-care (01) ==
LOC: C.ENDO 07:50
PROVIDERS: ATTEND Internal Medicine Gastroenterology
DX: K29.60 Other gastritis without bleeding (principal); K20.9 Esophagitis, unspecified
CPT/HCPCS: 43239; 82948; 88305; J2001; J2704